=== PATIENT | female | born 1985 | race Caucasian/White ===

== ENCOUNTER 2016-09-29 15:12 | Emergency (ER) | payer MEDICAID ==
[~2016-09-29] VITALS: Ht 162.6 cm; Wt 70.0 kg
[2016-09-29] MEDS ORDERED: MAGNESIUM SULFATE 2 GM, MULTIVITAMINS 10 ML, THIAMINE 100 MG, FOLIC ACID 1 MG in SOD CH... IV STA (15:16)
[2016-09-29 15:18] VITALS: Ht 162.6 cm; Wt 70.0 kg
--- NOTE | 2016-09-29 15:29 | ERD ---
ER Documentation Chief Complaint Date/Time DATE: 09/29/16 TIME: 15:20 Chief Complaint BIB RA 60 ETOH HPI This is a 34-year-old female that presents to the emergency department brought in by EMS after she was found sleeping on a sidewalk next to an empty bottle of alcohol. The patient was too drowsy to provide any history. There is no signs of trauma or drug paraphernalia. Patient has risk bands from [facility] and another hospital on her right upper extremity. The patient is known to the bystanders who phone 911 and indicated the patient has a history of chronic alcohol abuse. ROS All systems reviewed and are negative except as per history of present illness. Physical Exam Vitals Vital Signs Date Time Temp Pulse Resp B/P Pulse Ox O2 Delivery O2 Flow Rate FiO2 09/29/16 16:16 98.3 110 20 109/71 97 Nasal Cannula 2.0 09/29/16 15:18 97.9 111 18 125/82 98 Physical Exam Constitutional:Well-developed. Disheveled. HEENT:Normocephalic. Atraumatic.Pupils were equal round reactive to light. Moist mucous membranes.No tonsillar exudates. No nasal septal hematoma. No hemotympanum. Neck: No nuchal rigidity. No lymphadenopathy. No posterior cervical spine tenderness or step-offs. Respiratory: Not using accessory muscles of respiration.Lungs were clear to auscultation bilaterally. No rhonchi. No rales. No wheezing. Cardiovascular: Regular rate regular rhythm.No murmurs. No rubs were appreciated.S1, S2 normal. Distal pulses are palpable 2+ bilaterally. GI: Abdomen was soft. Nontender. Non Distended. No pulsatile abdominal masses or bruits. No rebound. No guarding. Bowel sounds were present and normal. No flank ecchymosis. No periumbilical ecchymosis Muscle skeletal: Full range of motion of both the upper and lower extremities bilaterally.Normal muscle tone.No assymetrical calf tenderness or swelling. Skin: No petechia, no purpura. No lesions on the palms or the soles of the feet. No maculopapular rash. NEURO: Patient was drowsy and therefore gait not observed. Patient would open eyes in response to pain. Patient withdrew to pain. Patient was a phasic. Result Diagram: 09/29/16 1545 09/29/16 1545 Results 24 hrs Laboratory Tests Test 09/29/16 15:45 09/29/16 16:00 Acetaminophen Level < 10.0ug/ml Activated Partial Thromboplast Time 25.2Sec Alanine Aminotransferase (ALT/SGPT) 42IU/L Albumin 4.0g/dl Albumin/Globulin Ratio 1.37 Alkaline Phosphatase 68IU/L Anion Gap 21 Aspartate Amino Transf (AST/SGOT) 61IU/L Basophils # 0.110^3/ul Basophils % 1.3% Blood Urea Nitrogen 6mg/dl Calcium Level 8.1mg/dl Carbon Dioxide Level 24mmol/L Chloride Level 111mmol/L Creatinine 0.71mg/dl Direct Bilirubin 0.00mg/dl Eosinophils # 0.110^3/ul Eosinophils % 1.3% Ethyl Alcohol Level 450.0mg/dl Globulin 2.90g/dl Glucose Level 94mg/dl Hematocrit 35.7% Hemoglobin 11.5g/dl INR International Normalized Ratio 0.91 Indirect Bilirubin 0.1mg/dl Lymphocytes # 1.610^3/ul Lymphocytes % 30.5% Mean Corpuscular Hemoglobin 27.3pg Mean Corpuscular Hemoglobin Concent 32.2g/dl Mean Corpuscular Volume 84.8fl Mean Platelet Volume 10.2fl Monocytes # 0.210^3/ul Monocytes % 4.6% Neutrophils # 3.210^3/ul Neutrophils % 62.1% Nucleated Red Blood Cells # 0.010^3/ul Nucleated Red Blood Cells % 0.0/100WBC Platelet Count 70875^3/UL Potassium Level 3.8mmol/L Prothrombin Time 12.3Sec Prothrombin Time Ratio 1.0 Red Blood Count 4.2110^6/ul Red Cell Distribution Width 20.7% Salicylates Level < 1.0mg/dl Serum HCG, Qualitative NEGATIVE Sodium Level 152mmol/L Total Bilirubin 0.1mg/dl Total Protein 6.9g/dl White Blood Count 5.210^3/ul Urine Bacteria MODERATE Urine Bilirubin NEGATIVE Urine Clarity CLEAR Urine Color LT. YELLOW Urine Glucose NEGATIVE% Urine Hemoglobin TRACE Urine Ketones NEGATIVE Urine Leukocyte Esterase NEGATIVE Urine Microscopic RBC 0-2/HPF Urine Microscopic WBC 5-10/HPF Urine Nitrite NEGATIVE Urine Specific [place] 1.010 Urine Total Protein NEGATIVE Urine Urobilinogen 0.2 E.U./dL Urine pH 5.5 Current Medications Medications (Trade) Dose Ordered Sig/Telma Route PRN Reason Start Time Stop Time Status Last Admin Dose Admin Magnesium Sulfate/ Multivitamins/ Thiamine HCl/ Folic Acid/Sodium Chloride (Magnesium Sulfate/Mvi Adult/ Vitamin B1/Folic Acid/NS) 1,015.2 ml @ 500 mls/ hr Q2H2M STAT IV 09/29/16 15:16 09/29/16 17:17 DC 09/29/16 19:13 Procedures/MDM The patient presented to the emergency department with an acute and persistent change in their mental status. The differential diagnosis is diverse however reversible causes such as hypoglycemia, opiate overdose, thiamine deficiency were immediately considered. The patient was placed on a cardiac/vascular sonographer, continuous pulse oximetry and IV access was established. The patients airway was secure however hypoxic events such as anemia, shock, or severe pulmonary disease were all considered as etiologies in this patients presentation. Circulation assessed with good cap refill and did not require fluids or pressure support. Finger stick for rapid glucose determined to be normal. The patient no signs of head trauma and therefore did not feel is necessary to obtain a CT scan of the patient's head. The patient had a serum ethanol that was elevated. The patient received a banana bag while in the emergency department for toxic encephalopathy suspected to be secondary to ethanol intoxication. The patient is also hyponatremic with a serum sodium 152 and was given a liter bolus of normal saline Observation Note: Time: 6 hours Family Hx: No Hypertension Evaluation: Multiple exams showed improving symptoms and no evidence of impending delirium tremors. The patient was now alert awake and able to ambulate will be discharged. The patient was discharged home in fair condition. They were instructed to return to the emergency department at any time if there was any worsening of their condition. The patient stated they would follow up with their PCP in the next 24-48 hours to initiate a suitable medication regimen under the care of their PCP as well as to allow their PCP to monitor any drug reactions. The patient was discharged home with prescriptions after they gave informed consent to the new medication. They were also fully informed by myself on the adverse effects and adverse drug interactions in order to provide adequate safeguards to prevent possible adverse reactions to medications. Departure Diagnosis: Primary Impression: Alcoholic intoxication Complication of substance-induced condition: uncomplicated Qualified Code: F10.120 - Alcoholic intoxication, uncomplicated Additional Impressions: Toxic encephalopathy Acute hypernatremia Condition: Fair GURU TOBAR Sep 29, 2016 15:29
[2016-09-29 15:53] LABS: ADD SCAN DIFF NO
[2016-09-29 15:54] LABS: BASOPHIL # 0.1 10^3/ul (0.0-0.1); BASOPHILS % 1.3 % (0.0-2.0); EOSINOPHILS # 0.1 10^3/ul (0.0-0.5); EOSINOPHILS % 1.3 % (0.0-7.0); HEMATOCRIT 35.7 % (37.0-47.0); HEMOGLOBIN 11.5 g/dl (12.0-16.0); LYMPHOCYTES # 1.6 10^3/ul (0.8-2.9); LYMPHOCYTES % 30.5 % (15.0-51.0); MEAN CORPUSCULAR HEMOGLOBIN 27.3 pg (29.0-33.0); MEAN CORPUSCULAR HGB CONC 32.2 g/dl (32.0-37.0); MEAN CORPUSCULAR VOLUME 84.8 fl (82.0-101.0); MEAN PLATELET VOLUME 10.2 fl (7.4-10.4); MONOCYTE # 0.2 10^3/ul (0.3-0.9); MONOCYTES % 4.6 % (0.0-11.0); NEUTROPHIL # 3.2 10^3/ul (1.6-7.5); NEUTROPHILS % 62.1 % (39.0-77.0); PLATELET COUNT 254 10^3/UL (140-415); RED BLOOD COUNT 4.21 10^6/ul (4.20-5.40); RED CELL DISTRIBUTION WIDTH 20.7 % (11.5-14.5); WHITE BLOOD COUNT 5.2 10^3/ul (4.8-10.8)
[2016-09-29 16:03] LABS: CHLORIDE 111 mmol/L (97-110); SODIUM 152 mmol/L (135-144)
[2016-09-29 16:04] LABS: INR 0.91; POTASSIUM 3.8 mmol/L (3.5-5.1); PROTIME 12.3 Sec (12.2-14.2)
[2016-09-29 16:05] LABS: CREATININE 0.71 mg/dl (0.44-1.00); PARTIAL THROMBOPLASTIN TIME 25.2 Sec (25.0-35.0)
[2016-09-29 16:06] LABS: ALANINE AMINOTRANSFERASE 42 IU/L (13-69); ALBUMIN/GLOBULIN RATIO 1.37; ALKALINE PHOSPHATASE 68 IU/L (42-121); ANION GAP 21 (8-16); ASPARTATE AMINO TRANSFERASE 61 IU/L (15-46); BILIRUBIN,INDIRECT 0.1 mg/dl (0-1.1); BILIRUBIN,TOTAL 0.1 mg/dl (0.2-1.3); BLOOD UREA NITROGEN 6 mg/dl (7-20); CALCIUM 8.1 mg/dl (8.4-10.2); CARBON DIOXIDE 24 mmol/L (21-31); GLUCOSE 94 mg/dl (70-220); TOTAL PROTEIN 6.9 g/dl (6.1-8.1)
[2016-09-29 16:07] LABS: ACETAMINOPHEN < 10.0 ug/ml (10.0-30.0); SALICYLATE < 1.0 mg/dl (5.0-30.0)
[2016-09-29 16:09] LABS: ADD UMIC YES; URINE BILIRUBIN (Dip) NEGATIVE (NEGATIVE); URINE BLOOD (Dip) TRACE (NEGATIVE); URINE COLOR LT. YELLOW (YELLOW); URINE GLUCOSE (Dip) NEGATIVE (NEGATIVE); URINE KETONES (Dip) NEGATIVE (NEGATIVE); URINE LEUKOCYTE ESTERASE (Dip) NEGATIVE (NEGATIVE); URINE NITRITE (Dip) NEGATIVE (NEGATIVE); URINE TOTAL PROTEIN (Dip) NEGATIVE (NEGATIVE); URINE UROBILINOGEN (Dip) 0.2 E.U./dL (0.1-1.0)
[2016-09-29 16:44] LABS: BACTERIA,URINE MODERATE; URINE RBCS 0-2 /HPF (0)
[2016-09-29] MEDS ORDERED: SOD CHLORIDE 0.9% 1,000 ML IV STA (20:47)
[2016-09-29 22:26] VITALS: BP 118/80; PULSE 88; RESP 18; TEMP 97.9
== END 2016-09-29 22:27 | disposition home or self-care (01) ==
LOC: E/R 15:12
DX: F10.120 Alcohol abuse with intoxication, uncomplicated (principal); E87.0 Hyperosmolality and hypernatremia; G92 Toxic encephalopathy; T51.0X1A Toxic effect of ethanol, accidental (unintentional), initial encounter; R40.2142 Coma scale, eyes open, spontaneous, at arrival to emergency department; R40.2252 Coma scale, best verbal response, oriented, at arrival to emergency department; R40.2362 Coma scale, best motor response, obeys commands, at arrival to emergency department
CPT/HCPCS: 80053; 80306; 81001; 81003; 84703; 85025; 85610; 85730; 96374; J3411; J3475; J7030; Z7502; Z7610